=== PATIENT | female | born 1965 | race Caucasian/White ===

== ENCOUNTER 2016-07-10 11:59 | Day surgery (SDC) | payer BC ==
[2016-07-10] MEDS ORDERED: LACTATED RINGERS 1,000 ML IV ONE (12:17)
[2016-07-10] MEDS ORDERED: MIDAZOLAM 2 MG/2 ML VIAL IVP ONE (15:31)
[2016-07-10] MEDS ORDERED: fentaNYL 250 MCG/5 ML VIAL IVP ONE (15:31)
== END 2016-07-10 12:00 | disposition home or self-care (01) ==
PROC: 0DJD8ZZ Inspection of Lower Intestinal Tract, Via Natural or Artificial Opening Endoscopic (ICD-10-PCS; principal; 2016-07-10 13:00)
DX: K59.09 Other constipation (principal); K62.5 Hemorrhage of anus and rectum; K64.4 Residual hemorrhoidal skin tags; K64.8 Other hemorrhoids; G47.00 Insomnia, unspecified; Z80.1 Family history of malignant neoplasm of trachea, bronchus and lung; Z80.8 Family history of malignant neoplasm of other organs or systems; Z84.1 Family history of disorders of kidney and ureter
CPT/HCPCS: 45378; J3010; J7120